=== PATIENT | female | born 1990 | race Caucasian/White ===

== ENCOUNTER 2017-02-01 14:41 | Emergency (ER) | payer OTHER ==
[~2017-02-01] VITALS: Ht 162.6 cm; Wt 68.8 kg
[2017-02-01 15:08] LABS: ADD MIUA? YES; BILIRUBIN NEGATIVE; BLOOD SMALL; COLOR YELLOW ((YELLOW)); GLUCOSE (STRIP) NEGATIVE; KETONES 20; LEUKOCYTES LARGE; NITRITE POSITIVE; PROTEIN (STRIP) 30; SPECIFIC GRAVITY 1.014 (1.000-1.030); UROBILINOGEN 0.2 MG/DL (0.2-1.0)
[2017-02-01 15:31] LABS: WHITE BLOOD CELLS 20-30 /HPF (0-5)
[2017-02-01 15:32] LABS: AMORPHOUS URATES CRYSTALS FEW; BACTERIA 1+ /HPF; CASTS NONE SEEN /LPF; CRYSTALS PRESENT; EPITHELIAL CELLS 1+ /HPF; MUCUS NONE SEEN /LPF; UCUL ADDED? YES
[2017-02-01 15:48] LABS: HEMATOCRIT 39.7 % (36.0-46.0); MCH 28.7 PG (29.0-34.0); MCV 84.3 FL (83-99); PLATELET COUNT 281 K/uL (156-360); RBC DIS.WIDTH-CV 13.2 % (11.8-14.6); RBC DIS.WIDTH-SD 40.8 % (39-53); RED BLOOD COUNT 4.71 M/uL (3.80-5.20)
[2017-02-01 16:03] LABS: CHLORIDE 103 mEq/L (99-109); POTASSIUM 3.7 mEq/L (3.7-5.4); SODIUM 135 mEq/L (136-147)
[2017-02-01 16:05] LABS: GLUCOSE 96 mg/dL (70-99)
[2017-02-01 16:06] LABS: ANION GAP 10 MEQ/L (2-14)
[2017-02-01 16:07] LABS: TOTAL BILIRUBIN 1.1 mg/dL (0.0-1.0)
[2017-02-01 16:09] LABS: ALKALINE PHOSPHATASE 59 IU/L (3-129)
[2017-02-01 16:10] LABS: UREA NITROGEN (BUN) 8 mg/dL (9-23)
[2017-02-01 16:16] LABS: GFR ESTIMATE (CALCULATED) > 59 mL/min/
[2017-02-01 16:17] LABS: QUANTITATIVE HCG < 4.0 MIU/ML
[2017-02-01] MEDS ORDERED: CEFPODOXIME PR100 MG PO (16:45)
[2017-02-01 17:14] VITALS: BP 120/75
== END 2017-02-01 17:28 | disposition home or self-care (01) ==
LOC: EME 14:41
DX: N12 Tubulo-interstitial nephritis, not specified as acute or chronic (principal); Z88.0 Allergy status to penicillin
CPT/HCPCS: 80053; 81003; 84702; 85027; 87077; 87086; 87186; 99281; 99285; J0696; J2270; J2405; J7030

== ENCOUNTER 2017-04-17 21:58 | Emergency (ER) | payer OTHER ==
[~2017-04-17] VITALS: Ht 165.1 cm; Wt 67.4 kg
[~2017-04-17 21:58] MED LIST: CEFPODOXIME PR100 MG PO
[2017-04-17 22:04] VITALS: BP 128/74
== END 2017-04-17 23:34 | disposition home or self-care (01) ==
LOC: EME 21:58
DX: S97.111A Crushing injury of right great toe, initial encounter (principal); W20.8XXA Other cause of strike by thrown, projected or falling object, initial encounter; Y99.0 Civilian activity done for income or pay; Z88.0 Allergy status to penicillin
CPT/HCPCS: 73630; 99281; 99283